=== PATIENT | male | born 1965 | race Two or more races ===

== ENCOUNTER 2019-11-23 09:13 | Outpatient (CLI) | payer OTHER, MEDICAID ==
[~2019-11-23] VITALS: Ht 175.3 cm; Wt 127.9 kg
[2019-11-23 09:47] VITALS: BP 132/80
--- NOTE | 2019-11-23 17:00 | Consultation ---
DATE OF CONSULTATION: 11/23/2019 CONSULTING PHYSICIAN: Francisco Vega M.D. CHIEF COMPLAINT: Referral for screening colonoscopy. PAST MEDICAL HISTORY: 1. Diabetes. 2. Hypertension. 3. Hypercholesteremia. 4. Bipolar disorder. 5. Sleep apnea. PAST SURGICAL HISTORY: Carpal tunnel surgery and appendectomy. MEDICATIONS: Please see the long medication reconciliation list. FAMILY HISTORY: Father had hypertension and diabetes. Mother had CVA. SOCIAL HISTORY: The patient denies any tobacco, alcohol, or drug abuse. ALLERGIES: Sulfa and neomycin. REVIEW OF SYSTEMS: A 10-point review of systems was performed and pertinent positives in HPI. PHYSICAL EXAMINATION: VITAL SIGNS: Temperature 97.2, blood pressure 132/80, pulse 77, and respirations 20. HEENT: Normocephalic and atraumatic. Sclerae anicteric. NECK: Supple. No obvious evidence of lymphadenopathy. CARDIOVASCULAR: Regular rate and rhythm. Plus S1 and S2. LUNGS: Clear to auscultation bilaterally. ABDOMEN: Positive bowel sounds. Soft and nontender. No rebound. No guarding. No peritoneal sign. EXTREMITIES: No cyanosis. No clubbing. No edema. ASSESSMENT AND PLAN: A 54-year-old male referred for screening colonoscopy. The patient definitely needs anesthesia given he has a severe sleep apnea requiring BiPAP. The patient was educated about the day before the colonoscopy. The prep was informed to him. The risks and benefits of procedure was explained to him. He agrees. We will plan to do colonoscopy when authorization is obtained. Francisco Vega M.D. DR: OTF JOB#: [id number] CC:
[2019-11-26] MEDS ORDERED: DEPAKOTE250 MG PO (08:26)
[2019-11-26] MEDS ORDERED: TRULICITY1.5 MG/0.5 SQ (08:27)
[2019-11-26] MEDS ORDERED: LOSARTAN POTASS50 MG ORAL (08:27)
[2019-11-26] MEDS ORDERED: ATORVASTATIN CA20 MG ORAL (08:27)
[2019-11-26] MEDS ORDERED: GLIPIZIDE5 MG ORAL (08:27)
[2019-11-26] MEDS ORDERED: METFORMIN HCL1000 M1 ORAL (08:27)
[2019-11-26] MEDS ORDERED: BUPROPION HCL100 M1 ORAL (08:27)
== END 2019-11-23 14:42 | disposition home or self-care (01) ==
LOC: PAN 09:13
DX: E11.9 Type 2 diabetes mellitus without complications (principal); I10 Essential (primary) hypertension; E78.00 Pure hypercholesterolemia, unspecified; F31.9 Bipolar disorder, unspecified; G47.30 Sleep apnea, unspecified; Z88.2 Allergy status to sulfonamides
CPT/HCPCS: G0463